=== PATIENT | male | born 1985 | race Two or more races ===

== ENCOUNTER 2022-10-15 12:32 | Outpatient (CLI) | payer OTHER ==
[~2022-10-15 12:32] MED LIST: GADOBUTROL 10 MMOL/10 ML VIAL ONE
--- NOTE | 2022-10-15 14:29 | MRI Report ---
PROCEDURE: BRAIN W/WO INDICATIONS: MIGRAINE CONTRAST: Gadavist 8.6ml TECHNIQUE: Noncontrast axial T1 spin echo, axial T2 fast spin echo, sagittal and axial FLAIR, coronal T2 fast sp in echo, axial gradient echo, axial diffusion and ADC through the brain. After the administration of contrast, axial and coronal T1 spin echo with fat saturation through the brain. COMPARISON: None. FINDINGS: Image quality: Excellent. CSF spaces: Basal cisterns are patent. No extra-axial fluid collections. Ventricles are normal in size and shape. Brain: No midline shift. No intracranial bleeds or masses. No abnormal intracranial enhancement. There is cerebral volume loss for age. There is periventricular white matter chronic small vessel is chemic change. The brainstem appears normal. Diffusion-weighted images demonstrate no acute ischemi c insults. No chronic ischemic insults. Normal intravascular flow voids are present. Skull and face: Calvarial marrow is normal in signal. Orbits appear normal. Sinuses: Mild paranasal sinus mucosal thickening. No mastoid air cell effusion. IMPRESSION: No salient intracranial abnormality demonstrated. Mild paranasal sinus mucosal thickening . Reviewed by: Zachariah Tejada MD on 10/15/2022 2:27 PM PST Approved by: Zachariah Tejada MD on 10/15/2022 2:27 PM PST Station ID: [id number]
== END 2022-10-15 12:33 | disposition home or self-care (01) ==
LOC: DI 12:32
PROVIDERS: ATTEND Physician Assistant
DX: G43.109 Migraine with aura, not intractable, without status migrainosus (principal)
CPT/HCPCS: 70553; A9585